=== PATIENT | female | born 1990 | race Caucasian/White ===

== ENCOUNTER 2019-10-03 12:35 | Emergency (ER) | payer MEDICAID ==
[~2019-10-03] VITALS: Ht 160 cm; Wt 100.0 kg
[2019-10-03] MEDS ORDERED: HYDROCODONE/ACETAMINOPHEN 5-325 MG TABLET PO ONE ×2 (14:30→16:00)
[2019-10-03] MEDS ORDERED: BUPIVACAINE HCL/PF 0.25% 10 ML VIAL INJ ONE (15:15)
[2019-10-03 17:24] VITALS: BP 126/77
== END 2019-10-03 17:25 | disposition home or self-care (01) ==
LOC: EMS 12:44
DX: K08.89 Other specified disorders of teeth and supporting structures (principal)
CPT/HCPCS: 64400; 81025; 99284; J3490